=== PATIENT | male | born 1935 | race American Indian/Alaskan Native ===

== ENCOUNTER 2018-03-14 15:50 | Outpatient (CLI) | payer MEDICARE ==
--- NOTE | 2018-03-14 20:44 | XRay Report ---
FINAL REPORT EXAM: XR HAND 3+V RT HISTORY: EDEMA, UNSPECIFIED TECHNIQUE: 3 views of right hand. PRIORS: None. FINDINGS: Degenerative changes scattered in the radiocarpal, distal radioulnar and little finger CMC joints. Less severe degenerative change scattered in the IP joints of the fingers. No apparent fracture, dislocation or obvious osseous destruction. Mild soft tissue edema in the dorsal metacarpal region. IMPRESSION: 1. No acute osseous abnormality. 2. Degenerative changes and soft tissue edema.
== END 2018-03-14 15:51 | disposition home or self-care (01) ==
LOC: XRAY 15:50
PROVIDERS: ATTEND Internal Medicine
DX: M19.041 Primary osteoarthritis, right hand (principal)